=== PATIENT | female | born 1965 | race Caucasian/White ===

== ENCOUNTER 2019-10-12 10:29 | Inpatient (IN) ==
--- NOTE | 2019-09-30 18:42 | ANES ---
Anesthesia Pre Procedure Eval HOME MEDICATIONS ibuprofen 200 mg tablet 600 mg PO Q8H PRN tab 08/12/18 [Last Taken Unknown] zolpidem 5 mg tablet 5 mg PO HS #30 tab 09/01/19 [Last Taken Unknown] ranitidine HCl 150 mg capsule 150 mg PO DAILY 09/24/19 [Last Taken Unknown] FLUoxetine HCL [Prozac] 40 mg PO DAILY 09/30/19 [Last Taken Unknown] Simvastatin 10 mg PO DAILY 09/30/19 [Last Taken Unknown] Allergies/Adverse Reactions: Allergies Allergy/AdvReac Type Severity Reaction Status Date / Time Sulfa (Sulfonamide Allergy Mild red eyes Verified 09/30/19 13:41 Antibiotics) - Planned Procedure Planned Procedure: L Arthroplasty Total Knee Medication List Reviewed:: Yes Allergies Verified: Yes Medical History (Last Reviewed 09/30/19 @ 18:41 by Walter Camarillo CRNA) Arthritis Onset Date: Unknown Hyperlipidemia Onset Date: Unknown Knee pain, bilateral Onset Date: Unknown Headache Onset Date: 11/2015 Pharyngitis, acute Onset Date: 02/2013 Surgical History (Last Reviewed 09/30/19 @ 18:41 by Walter Camarillo CRNA) H/O dilation and curettage Onset Date: Unknown History of tonsillectomy Onset Date: Unknown Family History (Last Reviewed 09/30/19 @ 18:41 by Walter Camarillo CRNA) Father CHF (congestive heart failure) Hypertension Mother Dementia - Family Anesthesia History Family History:: no untoward family reactions to anesthesia, no familial bleeding tendencies, no family history of clotting disorders, no family history of premature - Airway/Neck/Teeth Within Normal Limits:: Yes Teeth Condition: intact Mallampatti Score: 2 Thyromental (T-M) distance: > 6 cm Mandibulo Hyoid distance: > 3 cm - Respiratory Smoking Status: Never smoker Discussed smoking cessation including day of surgery: No Sleep Apnea currently treated: No Sleep Apnea by current assessment: No - Cardiovascular Tolerate Activity: Fair Heart Sounds: S1 & S2, Regular - Anesthesia Assessment and Plan ASA Class: PS, II Anesthesia Type Plan: Block - Left ultrasound guided adductor canal nerve block for postop analgesia, Spinal
[~2019-10-12 10:29] MED LIST: MORPHINE SULFATE 15 MG TABLET.SA PO PRN; ROPIVACAINE HCL/PF 100 MG, EPINEPHrine 0.2 MG, KETOROLAC TROMETHAMINE 30 MG in NORMAL S... IJ PRN; TRANEXAMIC ACID 1,000 MG in NORMAL SALINE 100 ML IV PRN; VANCOMYCIN HCL 1 GM in DEXTROSE 5 % IN WATER 250 ML IV PRN; ceFAZolin SODIUM 1 GM VIAL IV PRN
[2019-10-12] MEDS ORDERED: BUPIVACAINE HCL 50 ML VIAL IJ ONE (11:04)
[2019-10-12] MEDS ORDERED: LIDOCAINE HCL 20 ML VIAL ONE (11:04)
[2019-10-12] MEDS ORDERED: PROPOFOL VIAL IV ONE (11:05)
[2019-10-12] MEDS ORDERED: ONDANSETRON HCL/PF 2 MG/ML VIAL ONE (11:05)
[2019-10-12] MEDS ORDERED: fentaNYL CITRATE/PF 50 MCG/ML AMPUL ONE (11:05)
[2019-10-12] MEDS ORDERED: ceFAZolin SODIUM 1 GM VIAL ONE (11:20)
[2019-10-12] MEDS: RINGER'S SOLUTION,LACTATED 1,000 ML IV PRN ×3 (11:39→14:37)
[2019-10-12] MEDS ORDERED: MAG HYDROX/ALUMINUM HYD/SIMETH 30 ML UDC PO PRN (14:07)
[2019-10-12] MEDS ORDERED: MAGNESIUM HYDROXIDE 30 ML UDC PO PRN (14:07)
[2019-10-12] MEDS ORDERED: ZOLPIDEM TARTRATE 5 MG TABLET PO PRN (14:07)
[2019-10-12] MEDS ORDERED: diphenhydrAMINE HCL 50 MG/ML VIAL IV PRN (14:07)
--- NOTE | 2019-10-12 14:12 | OR ---
Operative Report - Dictated Report Narrative: Date: 10/12/2019 Preoperative diagnosis: Left knee degenerative joint disease. Postoperative diagnosis: Left knee degenerative joint disease. Procedure: Left total knee arthroplasty. Surgeon: Mikey Simeon M.D. Medical Record Librarian: Gianfranco Andres PA-C (provided and essential set of skilled, educated hands that assisted with transfer, positioning, prepping, draping, manipulation, retraction, placement of jigs, injection, insertion of implants, irrigation, closure wounds, and dressings all of which could not be performed by the available surgical crew) Anesthesia: Spinal with regional block and local periarticular joint injection. Complications: None Specimens: Bone. Estimated blood loss: Minimal. Tourniquet time: 105 Minutes at 300 millimeters of mercury. Retained implants: Depuy Attune size 7 left lugged cemented posterior stabilized femoral component. Size 6 fixed-bearing cemented tibial platform. 7 by 7 millimeter posterior stabilized cross-linked tibial insert. 38 millimeter medialized patella button. Indications: Mrs. Brooks is a 53-year-old female who had long-standing bilateral knee pain. She is here today for left. This patient was followed in my clinic for period of time with significant complaints of left knee pain consistent with arthritic changes. She had failed conservative measures including, but not limited to, activity modification, passage of time, medications, and other conservative measures. Patient wished to proceed with surgical treatment. The risks, benefits, and alternatives were discussed in clinic. The risks of , blood clots, bleeding, infection, nerve/tendon blood vessel/ injury, malposition of components, intraoperative fracture, postoperative limited range of motion, persistent pain, failure of components, and need for additional procedures. Patient wished to proceed consent was obtained after answering all questions. Procedure: After marking the correct extremity on the floor, the patient was taken to the operating room. A timeout was performed. IV antibiotics consisting of Ancef and vancomycin secondary to MRSA positive screening were administered prior to the procedure. A regional followed by spinal anesthetic was induced by anesthesia, per my request, on the operative table with all bony prominences well-padded. Davey catheter was placed, and a bump was placed under the operative side buttock. SCDs and KIMBERLI hose were utilized on the nonoperative leg. A well-padded tourniquet was applied to the operative thigh. The operative leg was then pre-scrubbed with alcohol, prepped, and draped in a standard sterile fashion. After exsanguinating the extremity with an Esmarch bandage, the tourniquet was inflated. After marking out the anterior knee for standard incision centered over the patella, the skin was incised and dissected down to the joint retinaculum. The joint retinaculum was marked out as well as the horizontal axis of the patella, and a standard medial parapatellar arthrotomy was then made. The most proximal aspect of the quadriceps tendon and the patella tendon insertion were protected from release. A partial synovectomy was performed as well as a resection of the infrapatellar fat pad. The distal femoral fat pad proximal to the trochlea was also resected using cautery. The soft tissues were elevated off the medial aspect of the proximal tibia using a Cotton elevator ensuring that we did not transect the medial collateral ligament. Upon initial evaluation range of motion was approximately 0 degrees to 130 degrees of flexion. There were signs of advanced arthrosis in the patellofemoral joint the greatest but also present in the medial and lateral joint spaces. There were large marginal osteophytes which were removed with a rongeur. The knee was hyperflexed and the patella was tucked laterally. Protecting the surrounding soft tissues with Homans, an entry drill was placed down the femoral canal using Whitesides line for guidance into the entry point. The intramedullary femoral alignment kiki was utilized in order to cut the distal femur in 5 degrees of valgus resecting 10 millimeters of bone. Next the distal femur was sized to a size 7. A posterior referencing guide was utilized to place the distal femoral cutting block in 3 degrees of external rotation. This was pinned into place. The rotation was confirmed both visually and based on anatomic landmarks. The 4 in 1 cutting jig of the appropriate size was utilized in order to make all bony cuts. The angle wing was used to ensure no notching. Retractors were utilized in order to protect surrounding soft tissues. This cut did not result in any excessive notching. We then cut the box centered over the distal femur. This allowed for resection of the anterior and posterior cruciate ligaments. I then turned my attention to the preparation of the tibia. Using an extra medullary tibial alignment kiki, 4 millimeters of bone was resected off the medial articular surface. This was made perpendicular to the mechanical axis of the joint with the alignment kiki centered over the ankle mortise. The alignment kiki was checked and was noted to be parallel to the mechanical axis, centered over the medial one third of the tibial tubercle, paralleling the anterior surface of the tibia. We then turned our attention to the remaining meniscus and soft tissues. These were removed while protecting the surrounding ligaments and soft tissues. The marginal osteophytes off the anterior, posterior, medial, lateral aspects of the femur and tibia were removed. The tibia was sized out to a size 6. Next the tibia was drilled and punched in an externally rotated position. Next the trial femur and a series of tibial inserts were utilized in order to allow for full extension and maximal flexion. It was found that a 7 millimeter insert gave the best range of motion and stability at multiple flexion points as well as at full extension there was less than 2 mm of gapping both medially and laterally. There is minimal anterior translation with the knee at 90 degrees of flexion and no signs of being able to dislocate the knee. The patella was then prepared. The initial thickness was 21 millimeters. This was reamed down to 11 millimeters parallel to the anterior surface of the patella. It was sized out to a size 38 medialized patella button. This was then drilled and trialed. Without any medial restraint the patella tracked appropriately and did not sublux or dislocate. At this point, it was felt these were the appropriate sized implants, and all trials were removed. The standard periarticular joint injection consisting of ropivacaine, Toradol, and epinephrine were injected into the periarticular joint tissues. The bony surfaces were thoroughly irrigated with a pulsatile-suction saline irrigation device. A bone plug from the prior resected anterior chamfer cut was placed into the drill hole at the distal femur. The bony surfaces were then dried in preparation for placement of the implants. The cement was vacuum mixed per the leather sorter's instructions. The cement was placed on the dry bony surfaces and posterior aspect of the implants. The implants were impacted into place, removing all extruded cement. At this point anesthesia administered tranexamic acid per protocol intravenously. The knee was placed in extension with axial loading with the trial insert while the cement cured. Once the cement cured, all remaining extruded cement was removed. The knee was placed through a range of motion with the trial insert to ensure appropriate range of motion and stability. Final range of motion was approximately 0 to 130 degrees. The knee was again thoroughly irrigated with pulsatile saline lavage. The final polyethylene insert was then impacted into place ensuring no retained soft tissues. The remaining periarticular joint injection was injected. A medium Hemovac drain was placed exiting superior laterally. The knee was then placed over a triangle and the arthrotomy was closed with interrupted #1 Vicryl after thoroughly irrigating the joint. The deep and subcutaneous tissues were closed with interrupted 0 and 3-0 Vicryl respectively. Skin was closed with a running subcutaneous 3-0 Monocryl and Prineo Dermabond dressing. 4 x 4's, Sof-Rol, and a full leg Tej wrap were applied. All sponge, needle, blade, and instrument counts were correct prior to closing the wounds. Postoperative condition: The patient was awoken and transferred to the postanesthesia care unit in stable condition. Plan is to be admitted to the inpatient medical/surgical floor postoperatively for 24 hours of IV antibiotics, physical therapy, occupational therapy, and medical comanagement. Patient will be weightbearing as tolerated with range of motion as tolerated. DVT prophylaxis will be with SCDs, KIMBERLI hose, and pharmacological anticoagulation. Anticipated hospital stay is approximately 1-3 days.
--- NOTE | 2019-10-12 14:29 | ANES ---
Post Anesthesia Discharge - Transfer of Care Transfer of Care handoff given to nurse: Yes - Discharge from PACU Discharge from PACU when meets criteria: Yes - Discharge to ASU Discharge to ASU-no complications/pt stable: Yes
--- NOTE | 2019-10-12 14:30 | ANES ---
Anesthesia Procedure Note Procedure Note: ANESTHESIA PROCEDURE NOTE Date of Procedure: 10/12/2019. Time of procedure: 1150. Performed by: Walter Camarillo CRNA Heel Gouger: None. Preprocedure diagnosis: Left knee degenerative joint disease. Post procedure diagnosis: Same. Procedure: Left ultrasound guided adductor canal block for postoperative analgesia. Indications: The patient is a 53-year-old female, requesting left ultrasound- guided abductor canal block for postoperative analgesia related to left total knee arthroplasty. Findings: See below. Details of the procedure: The tissue over the intended target site was cleansed with ChloraPrepand draped in a sterile fashion. 2 ml Lidocaine 1 % was infiltrated to the skin and subcutaneous tissue at the intended target site. Under sterile technique and ultrasound guidance a 20-gauge block needle was inserted through the left sartorius muscle to the saphenous nerve just anterior and medial to the superficial femoral artery and vein. 15 mL's of 0.5% bupivacaine was injected after negative aspiration for blood. Needle tip and spread of local anesthetic surrounding the saphenous nerve was observed throughout the injection with real time ultrasound visualization. The needle was then removed intact. No complications were noted. The images were retained in the Hospital medical database. EBL: Minimal. Fluids: N/A. Specimen: N/A. Post procedure condition: The patient tolerated the procedure well. No complications were noted. Thank you for this consultation. Walter Camarillo CRNA
[2019-10-12] MEDS: KETOROLAC TROMETHAMINE 15 MG/ML VIAL IV SCH ×2 (15:06→20:06)
[2019-10-12] MEDS: oxyCODONE HCL/ACETAMINOPHEN 1 TAB TABLET PO PRN ×2 (15:07→20:05)
[2019-10-12] MEDS: MORPHINE SULFATE 2 MG/ML DISP.SYRIN IV PRN ×3 (15:22→17:27)
[2019-10-12] MEDS: ONDANSETRON HCL/PF 2 MG/ML VIAL IV PRN (15:23)
--- NOTE | 2019-10-12 16:25 | ANES ---
Post Anesthesia Assessment - Vital Signs Vitals: Last Vital Signs Temp 36.8 C 10/12/19 14:25 Pulse 66 10/12/19 15:53 Resp 14 10/12/19 14:45 BP 109/72 10/12/19 15:53 Pulse Ox 100 10/12/19 15:53 Airway Patency: Normal - Mental Status Level Of Consciousness: Awake - Pain Level Pain Score: 0 - N/V Assessment Nausea/Vomiting Presence: None Dehydration:: No
[2019-10-12] MEDS ORDERED: FLUoxetine HCL 20 MG CAPSULE ONE ×2 (17:24→17:25)
[2019-10-12] MEDS ORDERED: FAMOTIDINE 20 MG TABLET ONE (17:24)
[2019-10-12] MEDS: FAMOTIDINE 20 MG TABLET PO SCH (17:27)
[2019-10-12] MEDS: FLUoxetine HCL 20 MG CAPSULE PO SCH (17:27)
[2019-10-12] MEDS: SENNOSIDES/DOCUSATE SODIUM 1 TAB TABLET PO SCH (21:28)
[2019-10-12] MEDS: SIMVASTATIN 10 MG TABLET PO SCH (21:28)
[2019-10-12] MEDS: MORPHINE SULFATE 15 MG TABLET.SA PO SCH (21:28)
[2019-10-13] MEDS ORDERED: VANCOMYCIN HCL 1 GM in DEXTROSE 5 % IN WATER 250 ML IV SCH ×2 (00:07)
[2019-10-13] MEDS: ZOLPIDEM TARTRATE 5 MG TABLET PO SCH ×2 (01:31→20:32)
[2019-10-13] MEDS: oxyCODONE HCL/ACETAMINOPHEN 1 TAB TABLET PO PRN ×2 (02:46→07:45)
[2019-10-13] MEDS: KETOROLAC TROMETHAMINE 15 MG/ML VIAL IV SCH ×4 (02:47→20:32)
[2019-10-13] MEDS: ONDANSETRON HCL/PF 2 MG/ML VIAL IV PRN ×2 (04:41→09:08)
[2019-10-13 06:22] LABS: Hematocrit 32.8 % (37.0-47.0); Hemoglobin 10.9 gm/dL (12.5-16.0); Mean Cell Volume 95.6 fl (78-100); Mean Corpuscular Hemoglobin 31.8 pg (27-31); Mean Corpuscular Hgb Conc 33.2 g/dl (32-36); Mean Platelet Volume 9.3 fl (8-12.5); Platelet Count 221 K/mm3 (150-450); Red Blood Count 3.43 M/mm3 (4.2-5.4); Red Cell Distribution Width 13.1 % (11.5-14.0); White Blood Count 6.4 K/mm3 (4.0-10.5)
[2019-10-13 06:29] LABS: Anion Gap 8.6 mmol/L (6.8-13.8); BUN/Creatinine Ratio 12.7 (9.0-21.6); Calcium * 7.5 mg/dL (7.9-10.9); Estimated Creat Clear 93.9; Potassium 3.6 mmol/L (3.4-4.6)
--- NOTE | 2019-10-13 08:14 | PN ---
Subjective - Date and Time Seen Date: 10/13/19 Time: 08:09 Subjective Narrative: Patient's main complaint this morning is nausea. She states that she was doing well until taking Percocet the night. She states that the nausea started when she got up to move around. She did not take the Percocet with food in the night and thinks this may have contributed to her issue. She reports a moderate amount of discomfort at this time. She does feel the pain medicine is helping. She reports no lightheadedness or shortness of breath. Objective Objective Narrative: Bandages clean dry intact left lower extremity. Patient is able to plantarflex and dorsiflex the left ankle. Calf supple. Sensation intact to touch. - Vitals Vitals: Last Vital Signs Temp 36.8 C 10/12/19 14:25 Pulse 68 10/13/19 04:53 Resp 14 10/13/19 02:53 BP 96/52 10/13/19 04:53 Pulse Ox 91 L 10/13/19 02:53 - Abnormal Lab Findings Abnormal Lab Findings: Abnormal Lab Results 10/13/19 10/13/19 Range/Units 06:11 06:11 RBC 3.43 L (4.2-5.4) M/mm3 Hgb 10.9 L (12.5-16.0) gm/dL Hct 32.8 L (37.0-47.0) % MCH 31.8 H (27-31) pg Random Glucose 119 H (70-110) mg/dL Calcium 7.5 L (7.9-10.9) mg/dL Cauti Physician Documentation - Urinary Catheter Management Urethral (Davey) Date of Insertion: 10/12/19 Time of Insertion: 12: Date of Removal: 10/13/19 Time of Removal: 01:02 Assessment/Plan - Problems/Diagnosis (1) Status post total left knee replacement Problem: Acute Narrative: Pain control. PT. Anticoagulation. At this point time she is having some nausea related to her pain medicine with taking on an empty stomach. She would like to continue with the current pain regimen and see how she does with taking it with food. If she still feels that the Percocet is stimulating nausea we can switch to morphine IR. She did just get a dose of Zofran in the night and is due for another one here in the next hour. She is scheduled to have her right knee replaced tomorrow we will make her n.p.o. at midnight and antibiotics for tomorrow surgery scheduled. (2) Acute blood loss anemia Problem: Acute Narrative: Patient's hemoglobin is 10.9 down from 13.4 g. She is asymptomatic regarding this will continue to observe.
[2019-10-13] MEDS: MORPHINE SULFATE 15 MG TABLET.SA PO SCH ×2 (09:05→20:32)
[2019-10-13] MEDS: FAMOTIDINE 20 MG TABLET PO SCH (09:06)
[2019-10-13] MEDS: FLUoxetine HCL 20 MG CAPSULE PO SCH (09:06)
[2019-10-13] MEDS: ENOXAPARIN SODIUM 40 MG/0.4 ML SYRG SC SCH (12:12)
[2019-10-13] MEDS: MORPHINE SULFATE 2 MG/ML DISP.SYRIN IV PRN (12:25)
[2019-10-13] MEDS ORDERED: MORPHINE SULFATE 10 MG/0.5 ML SYRINGE PO PRN (12:39)
[2019-10-13] MEDS ORDERED: PROMETHAZINE HCL 25 MG TABLET PO PRN (12:40)
[2019-10-13] MEDS ORDERED: PROCHLORPERAZINE EDISYLATE 5 MG/ML VIAL IV PRN (13:01)
[2019-10-13] MEDS: SCOPOLAMINE HYDROBROMIDE 1.5 MG PATC TD SCH (15:01)
[2019-10-13] MEDS: SIMVASTATIN 10 MG TABLET PO SCH (20:31)
[2019-10-13] MEDS: SENNOSIDES/DOCUSATE SODIUM 1 TAB TABLET PO SCH (20:31)
[2019-10-14] MEDS: KETOROLAC TROMETHAMINE 15 MG/ML VIAL IV SCH ×5 (01:40→22:37)
[2019-10-14] MEDS ORDERED: ceFAZolin SODIUM 1 GM VIAL IV PRN (06:00)
[2019-10-14] MEDS ORDERED: BUPIVACAINE HCL/EPINEPHRINE 50 ML VIAL IJ ONE (06:30)
[2019-10-14] MEDS ORDERED: MIDAZOLAM HCL/PF 5 MG/ML VIAL ONE (06:31)
[2019-10-14] MEDS ORDERED: PROPOFOL VIAL IV ONE (06:31)
[2019-10-14] MEDS ORDERED: LIDOCAINE HCL 20 ML VIAL ONE (06:32)
[2019-10-14] MEDS ORDERED: BUPIVACAINE HCL/PF 10 ML VIAL ONE (06:35)
[2019-10-14] MEDS ORDERED: VANCOMYCIN HCL 1 GM in DEXTROSE 5 % IN WATER 250 ML IV ONE ×2 (07:00)
[2019-10-14] MEDS ORDERED: EPINEPHrine 1 MG/ML AMPUL ONE (07:00)
--- NOTE | 2019-10-14 07:02 | ANES ---
Anesthesia Pre Procedure Eval Vitals/Labs: Last Vital Signs Temp 37.3 C 10/14/19 06:51 Pulse 61 10/14/19 06:51 Resp 14 10/14/19 06:51 BP 104/54 10/14/19 06:51 Pulse Ox 95 10/14/19 06:51 HOME MEDICATIONS ibuprofen 200 mg tablet 600 mg PO Q8H PRN tab 08/12/18 [Last Taken Unknown] zolpidem 5 mg tablet 5 mg PO HS #30 tab 09/01/19 [Last Taken Unknown] FLUoxetine HCL [Prozac] 40 mg PO DAILY 09/30/19 [Last Taken Unknown] Simvastatin 10 mg PO DAILY 09/30/19 [Last Taken Unknown] Ranitidine HCl [Zantac] 150 mg PO DAILY 10/12/19 [Last Taken Unknown] Allergies/Adverse Reactions: Allergies Allergy/AdvReac Type Severity Reaction Status Date / Time Sulfa (Sulfonamide Allergy Mild red eyes Verified 10/12/19 10:48 Antibiotics) - Planned Procedure Planned Procedure: Bilateral Left then Right Total Knee Arthroplasty Medication List Reviewed:: Yes Allergies Verified: Yes Medical History (Last Reviewed 10/14/19 @ 07:01 by Collin Moise CRNA) Arthritis Onset Date: Unknown Hyperlipidemia Onset Date: Unknown Knee pain, bilateral Onset Date: Unknown Headache Onset Date: 11/2015 Pharyngitis, acute Onset Date: 02/2013 Surgical History (Last Reviewed 10/14/19 @ 07:01 by Collin Moise CRNA) H/O dilation and curettage Onset Date: Unknown History of tonsillectomy Onset Date: Unknown Family History (Last Reviewed 10/14/19 @ 07:01 by Collin Moise CRNA) Father CHF (congestive heart failure) Hypertension Mother Dementia - Family Anesthesia History Family History:: no untoward family reactions to anesthesia - Airway/Neck/Teeth Within Normal Limits:: Yes Teeth Condition: intact Neck Exam: full range of motion Mallampatti Score: 2 Thyromental (T-M) distance: > 6 cm Mandibulo Hyoid distance: > 3 cm - Respiratory Respiratory Physical: lungs clear Smoking Status: Never smoker Sleep Apnea currently treated: No Sleep Apnea by current assessment: No - Cardiovascular Cardiac History: hyperlipidemia Tolerate Activity: Fair Heart Sounds: S1 & S2, Regular - Gastrointestinal NPO since: mn - Anesthesia Assessment and Plan ASA Class: PS, II Anesthesia Type Plan: Spinal - adductor canal block for post op analgesia
[2019-10-14] MEDS ORDERED: RINGER'S SOLUTION,LACTATED 1,000 ML IV ONE (07:29)
[2019-10-14] MEDS: MORPHINE SULFATE 15 MG TABLET.SA PO SCH ×2 (07:49→08:55)
[2019-10-14] MEDS ORDERED: ONDANSETRON HCL/PF 2 MG/ML VIAL ONE (07:57)
[2019-10-14] MEDS ORDERED: ceFAZolin SODIUM/DEXTROSE,ISO 2 GM/50 ML BAG IV ONE (08:06)
[2019-10-14] MEDS ORDERED: DEXTROSE 5%-LACTATED RINGERS 1,000 ML IV PRN (10:13)
[2019-10-14] MEDS ORDERED: MORPHINE SULFATE 10 MG/0.5 ML SYRINGE PO PRN (10:15)
--- NOTE | 2019-10-14 10:18 | OR ---
Operative Report - Dictated Report Narrative: Date: 10/14/2019 Preoperative diagnosis: Right knee degenerative joint disease. Postoperative diagnosis: Right knee degenerative joint disease. Procedure: Right total knee arthroplasty. Surgeon: Mikey Simeon M.D. Vehicle Calibration Engineer: Gianfranco Andres PA-C (provided and essential set of skilled, educated hands that assisted with transfer, positioning, prepping, draping, manipulation, retraction, placement of jigs, injection, insertion of implants, irrigation, closure wounds, and dressings all of which could not be performed by the available surgical crew) Anesthesia: Spinal with regional block and local periarticular joint injection. Complications: None Specimens: Bone. Estimated blood loss: Minimal. Tourniquet time: 105 Minutes at 300 millimeters of mercury. Retained implants: Depuy Attune size 7 right lugged cemented posterior stabilized femoral component. Size 6 fixed-bearing cemented tibial platform. 7 by 6 millimeter posterior stabilized cross-linked tibial insert. 38 millimeter medialized patella button. Indications: Mrs. Brooks is a 53-year-old female who is here today for second of her bilateral total knee arthroplasties today is on the right. This patient was followed in my clinic for period of time with significant complaints of right knee pain consistent with arthritic changes. She had failed conservative measures including, but not limited to, activity modification, passage of time, medications, and other conservative measures. Patient wished to proceed with surgical treatment. The risks, benefits, and alternatives were discussed in clinic. The risks of , blood clots, bleeding, infection, nerve/tendon blood vessel/ injury, malposition of components, intraoperative fracture, postoperative limited range of motion, persistent pain, failure of components, and need for additional procedures. Patient wished to proceed consent was obtained after answering all questions. Procedure: After marking the correct extremity on the floor, the patient was taken to the operating room. A timeout was performed. IV antibiotics cons isting of Ancef and vancomycin secondary to a positive MRSA screening were administered prior to the procedure. A regional followed by spinal anesthetic was induced by anesthesia, per my request, on the operative table with all bony prominences well-padded. Davey catheter was placed, and a bump was placed under the operative side buttock. SCDs and KIMBERLI hose were utilized on the nonoperative leg. A well-padded tourniquet was applied to the operative thigh. The operative leg was then pre-scrubbed with alcohol, prepped, and draped in a standard sterile fashion. After exsanguinating the extremity with an Esmarch bandage, the tourniquet was inflated. After marking out the anterior knee for standard incision centered over the patella, the skin was incised and dissected down to the joint retinaculum. The joint retinaculum was marked out as well as the horizontal axis of the patella, and a standard medial parapatellar arthrotomy was then made. The most proximal aspect of the quadriceps tendon and the patella tendon insertion were protected from release. A partial synovectomy was performed as well as a resection of the infrapatellar fat pad. The distal femoral fat pad proximal to the trochlea was also resected using cautery. The soft tissues were elevated off the medial aspect of the proximal tibia using a Cotton elevator ensuring that we did not transect the medial collateral ligament. Upon initial evaluation range of motion was approximately 0 degrees to 130 degrees of flexion. There were signs of advanced arthrosis in the patellofemoral greater than medial and lateral joint spaces. There were large marginal osteophytes which were removed with a rongeur. The knee was hyperflexed and the patella was tucked laterally. Protecting the surrounding soft tissues with Homans, an entry drill was placed down the femoral canal using Whitesides line for guidance into the entry point. The intramedullary femoral alignment kiki was utilized in order to cut the distal femur in 5 degrees of valgus resecting 10 millimeters of bone. Next the distal femur was sized to a size 7. A posterior referencing guide was utilized to place the distal femoral cutting block in 3 degrees of external rotation. This was pinned into place. The rotation was confirmed both visually and based on anatomic landmarks. The 4 in 1 cutting jig of the appropriate size was utilized in order to make all bony cuts. The angle wing was used to ensure no notching. Retractors were utilized in order to protect surrounding soft tissues. This cut did not result in any excessive notching. We then cut the box centered over the distal femur. This allowed for resection of the anterior and posterior cruciate ligaments. I then turned my attention to the preparation of the tibia. Using an extra medullary tibial alignment kiki, 3 millimeters of bone was resected off the medial articular surface. This was made perpendicular to the mechanical axis of the joint with the alignment kiki centered over the ankle mortise. The alignment kiki was checked and was noted to be parallel to the mechanical axis, centered over the medial one third of the tibial tubercle, paralleling the anterior surface of the tibia. We then turned our attention to the remaining meniscus and soft tissues. These were removed while protecting the surrounding ligaments and soft tissues. The marginal osteophytes off the anterior, posterior, medial, lateral aspects of the femur and tibia were removed. The tibia was sized out to a size 6. Next the tibia was drilled and punched in an externally rotated position. Next the trial femur and a series of tibial inserts were utilized in order to allow for full extension and maximal flexion. It was found that a 6 millimeter insert gave the best range of motion and stability at multiple flexion points as well as at full extension there was less than 2 mm of gapping both medially and laterally. There is minimal anterior translation with the knee at 90 degrees of flexion and no signs of being able to dislocate the knee. The patella was then prepared. The initial thickness was 20 millimeters. This was reamed down to 11 millimeters parallel to the anterior surface of the patella. It was sized out to a size 38 medialized patella button. This was then drilled and trialed. Without any medial restraint the patella tracked appropriately and did not sublux or dislocate. At this point, it was felt these were the appropriate sized implants, and all trials were removed. The standard periarticular joint injection consisting of ropivacaine, Toradol, and epinephrine were injected into the periarticular joint tissues. The bony surfaces were thoroughly irrigated with a pulsatile-suction saline irrigation device. A bone plug from the prior resected anterior chamfer cut was placed into the drill hole at the distal femur. The bony surfaces were then dried in preparation for placement of the implants. The cement was vacuum mixed per the general internal medicine physician's instructions. The cement was placed on the dry bony surfaces and posterior aspect of the implants. The implants were impacted into place, removing all extruded cement. At this point anesthesia administered tranexamic acid per protocol intravenously. The knee was placed in extension with axial loading with the trial insert while the cement cured. Once the cement cured, all remaining extruded cement was removed. The knee was placed through a range of motion with the trial insert to ensure appropriate range of motion and stability. Final range of motion was approximately 0 to 130 degrees. The knee was again thoroughly irrigated with pulsatile saline lavage. The final polyethylene insert was then impacted into place ensuring no retained soft tissues. The remaining periarticular joint injection was injected. A medium Hemovac drain was placed exiting superior laterally. The knee was then placed over a triangle and the arthrotomy was closed with interrupted #1 Vicryl after thoroughly irrigating the joint. The deep and subcutaneous tissues were closed with interrupted 0 and 3-0 Vicryl respectively. Skin was closed with a running subcutaneous 3-0 Monocryl and Prineo Dermabond dressing. 4 x 4's, Sof-Rol, and a full leg Tej wrap were applied. All sponge, needle, blade, and instrument counts were correct prior to closing the wounds. Postoperative condition: The patient was awoken and transferred to the postanesthesia care unit in stable condition. Plan is to be admitted to the inpatient medical/surgical floor postoperatively for 24 hours of IV antibiotics, physical therapy, occupational therapy, and medical comanagement. Patient will be weightbearing as tolerated with range of motion as tolerated. DVT prophylaxis will be with SCDs, KIMBERLI hose, and pharmacological anticoagulation. Anticipated hospital stay is approximately 1-3 days.
[2019-10-14] MEDS: FAMOTIDINE 20 MG TABLET PO SCH (11:18)
[2019-10-14] MEDS: FLUoxetine HCL 20 MG CAPSULE PO SCH ×2 (11:29→20:59)
--- NOTE | 2019-10-14 12:07 | ANES ---
Post Anesthesia Discharge - Transfer of Care Transfer of Care handoff given to nurse: Yes - Discharge from PACU Discharge from PACU when meets criteria: Yes
--- NOTE | 2019-10-14 12:08 | ANES ---
Post Anesthesia Assessment - Vital Signs Vitals: Last Vital Signs Temp 36.5 C 10/14/19 11:12 Pulse 54 L 10/14/19 11:12 Resp 16 10/14/19 11:12 BP 97/55 10/14/19 11:12 Pulse Ox 94 10/14/19 11:12 Airway Patency: Normal - Mental Status Level Of Consciousness: Awake - Pain Level Pain Score: 0 - N/V Assessment Nausea/Vomiting Presence: None Dehydration:: No
--- NOTE | 2019-10-14 12:31 | ANES ---
Anesthesia Procedure Note Procedure Note: ANESTHESIA PROCEDURE NOTE Date of procedure: 10/14/2019. Time of procedure: 08. Performed by: Rocky Moise CRNA Template Reproduction Technician: Amara Garvey RN . Preprocedure diagnosis: Right knee DJD. Post procedure diagnosis: Same. Procedure: Ultrasound-guided right adductor canal block. Indications: Postoperative analgesia. Findings: Patient brought to operating room #4 and given a spinal anesthetic. The patient's right inner thigh was prepped with ChloraPrep. 20-gauge 4 inch regional block needle was advanced under ultrasound guidance until tip of needle was positioned just lateral to saphenous nerve in the right adductor canal. 30 mL of 0.25% Marcaine with epinephrine 1-200,000 was injected with adequate spread of local anesthesia noted around the nerve. Regional block needle was removed intact. EBL: Minimal. Fluids: N/A. Specimen: N/A. Post procedure condition: The patient tolerated the procedure well. No complications were noted. Thank you for this consultation Rocky Moise CRNA
[2019-10-14] MEDS: ENOXAPARIN SODIUM 40 MG/0.4 ML SYRG SC SCH (12:51)
[2019-10-14] MEDS: MORPHINE SULFATE 2 MG/ML DISP.SYRIN IV PRN ×2 (15:28→22:49)
[2019-10-14] MEDS ORDERED: MORPHINE SULFATE 15 MG TABLET.SA PO ONE (16:31)
[2019-10-14] MEDS: ACETAMINOPHEN 500 MG TABLET PO PRN (16:51)
[2019-10-14] MEDS: DEXTROSE 5%-LACTATED RINGERS 1,000 ML IV PRN (19:00)
[2019-10-14] MEDS ORDERED: VANCOMYCIN HCL 1 GM in DEXTROSE 5 % IN WATER 250 ML IV SCH ×2 (20:13)
[2019-10-14] MEDS: MORPHINE SULFATE 30 MG TABLET.SA PO SCH (20:16)
[2019-10-14] MEDS: ZOLPIDEM TARTRATE 5 MG TABLET PO SCH (20:59)
[2019-10-14] MEDS: SENNOSIDES/DOCUSATE SODIUM 1 TAB TABLET PO SCH (21:00)
[2019-10-14] MEDS: SIMVASTATIN 10 MG TABLET PO SCH (21:00)
[2019-10-15] MEDS: MORPHINE SULFATE 2 MG/ML DISP.SYRIN IV PRN ×4 (01:54→10:55)
[2019-10-15] MEDS: ACETAMINOPHEN 500 MG TABLET PO PRN ×3 (02:45→20:52)
[2019-10-15] MEDS: KETOROLAC TROMETHAMINE 15 MG/ML VIAL IV SCH ×4 (03:55→22:02)
[2019-10-15] MEDS: DEXTROSE 5%-LACTATED RINGERS 1,000 ML IV PRN (04:29)
[2019-10-15] MEDS ORDERED: TRANEXAMIC ACID 1,000 MG in NORMAL SALINE 100 ML IV PRN (06:00)
[2019-10-15] MEDS ORDERED: RINGER'S SOLUTION,LACTATED 1,000 ML IV PRN (06:00)
[2019-10-15] MEDS ORDERED: ROPIVACAINE HCL/PF 100 MG, EPINEPHrine 0.2 MG, KETOROLAC TROMETHAMINE 15 MG in NORMAL S... IJ PRN (06:00)
[2019-10-15 06:55] LABS: Hematocrit 28.4 % (37.0-47.0); Hemoglobin 9.4 gm/dL (12.5-16.0); Mean Cell Volume 95.3 fl (78-100); Mean Corpuscular Hemoglobin 31.5 pg (27-31); Mean Corpuscular Hgb Conc 33.1 g/dl (32-36); Mean Platelet Volume 9.7 fl (8-12.5); Platelet Count 172 K/mm3 (150-450); Red Blood Count 2.98 M/mm3 (4.2-5.4); White Blood Count 8.3 K/mm3 (4.0-10.5)
[2019-10-15 07:06] LABS: Anion Gap 10.3 mmol/L (6.8-13.8); BUN/Creatinine Ratio 5.2 (9.0-21.6); Calcium * 7.6 mg/dL (7.9-10.9); Estimated Creat Clear 86.6; Potassium 3.3 mmol/L (3.4-4.6)
[2019-10-15] MEDS: MORPHINE SULFATE 30 MG TABLET.SA PO SCH ×2 (08:37→20:46)
[2019-10-15] MEDS: FAMOTIDINE 20 MG TABLET PO SCH (08:38)
[2019-10-15] MEDS: MORPHINE SULFATE 10 MG/0.5 ML SYRINGE PO PRN ×5 (08:38→23:36)
[2019-10-15] MEDS: ENOXAPARIN SODIUM 40 MG/0.4 ML SYRG SC SCH (13:29)
--- NOTE | 2019-10-15 16:59 | PN ---
Subjective - Date and Time Seen Date: 10/15/19 Time: 07:45 Subjective Narrative: Subjective: Reports increased pain yesterday afternoon but it is improved this morning. Was able to get to the bathroom with therapy. Pain is well- controlled. Voiding without any complications. Tolerating by mouth intake. Denies any nausea or vomiting after adding additional nausea medicines. Denies calf pain. Physical exam: Alert and oriented to person, place and time Bilateral lower extremity: Palpable dorsalis pedis pulse. Sensation grossly intact to light touch. Dressings clean and dry in the right. Able to flex and extend ankle and toes. No excessive drainage. Calf and thigh are soft and nontender. Assessment: Postop day 1 status post right total knee arthroplasty postop day 3 status post left knee arthroplasty. Plan: Due to the need for pain control, post-operative limited mobility, protection of the surgical site and joint, monitoring of the wound, and the management of chronic medical conditions, she requires continued inpatient care. Continue with physical and occupational therapy weightbearing as tolerated. Continue with anticoagulation. 24 hours postoperative prophylactic antibiotics. Pain control with goal to rely on oral medications. Continue bowel regimen. Will need 6 weeks with walker or assitive device to protect joint while ambulating during the recovery process. Discharge planning. Discontinue drain and Davey catheter. Objective - Vitals Vitals: Last Vital Signs Temp 37.3 C 10/15/19 16:05 Pulse 75 10/15/19 16:05 Resp 16 10/15/19 16:05 BP 111/63 10/15/19 16:05 Pulse Ox 95 10/15/19 16:05 - Abnormal Lab Findings Abnormal Lab Findings: Abnormal Lab Results 10/15/19 10/15/19 Range/Units 06:43 06:43 RBC 2.98 L (4.2-5.4) M/mm3 Hgb 9.4 L (12.5-16.0) gm/dL Hct 28.4 L (37.0-47.0) % MCH 31.5 H (27-31) pg Potassium 3.3 L (3.4-4.6) mmol/L BUN/Creatinine Ratio 5.2 L (9.0-21.6) Random Glucose 135 H (70-110) mg/dL Calcium 7.6 L (7.9-10.9) mg/dL Cauti Physician Documentation - Urinary Catheter Management Urethral (Davey) Date of Insertion: 10/14/19 Time of Insertion: 08:00 Date of Removal: 10/15/19 Time of Removal: 07:46 Assessment/Plan - Problems/Diagnosis (1) Status post total right knee replacement Problem: Acute (2) Acute blood loss anemia Problem: Acute (3) Status post total left knee replacement Problem: Acute (4) Depression Problem: Chronic (5) Nausea Problem: Acute (6) Hyperlipidemia Problem: Chronic
[2019-10-15] MEDS: FLUoxetine HCL 20 MG CAPSULE PO SCH (20:46)
[2019-10-15] MEDS: SIMVASTATIN 10 MG TABLET PO SCH (20:46)
[2019-10-15] MEDS: ZOLPIDEM TARTRATE 5 MG TABLET PO SCH (20:46)
[2019-10-15] MEDS: SENNOSIDES/DOCUSATE SODIUM 1 TAB TABLET PO SCH (20:46)
[2019-10-16] MEDS: KETOROLAC TROMETHAMINE 15 MG/ML VIAL IV SCH (03:57)
[2019-10-16] MEDS: ACETAMINOPHEN 500 MG TABLET PO PRN ×2 (06:50→13:01)
[2019-10-16] MEDS: MORPHINE SULFATE 10 MG/0.5 ML SYRINGE PO PRN ×2 (06:59→10:53)
[2019-10-16] MEDS: FAMOTIDINE 20 MG TABLET PO SCH (09:04)
[2019-10-16] MEDS: MORPHINE SULFATE 30 MG TABLET.SA PO SCH (09:04)
--- NOTE | 2019-10-16 13:08 | DS ---
(1) Status post total left knee replacement Problem: Acute (2) Acute blood loss anemia Problem: Acute Date of Discharge:: 10/16/19 Description of Stay: Mrs. Brooks was admitted to the floor after undergoing left total knee arthroplasty on October 12 and right total knee arthroplasty on October 14. Tolerated this well. Was admitted to the floor postoperatively for 24 hours of IV antibiotics, pain control, medical comanagement, and occupational and physical therapy. OT and PT were consulted to assist with activities of daily living and ambulation. Was made weightbearing as tolerated with range of motion as tolerated. Pain was initially controlled with IV regimen. She did have issues with postoperative nausea on postoperative day 1. Pain medications were modified as well as antinausea medications instituted. This did improve by postoperative day 2. This was transitioned to oral once tolerating a by mouth intake. Was resumed on home diet and medications. Had a Davey catheter inserted and the operating room which was discontinued on postoperative day 1 for respective knees. A drain was placed intraoperatively into the knee which was discontinued on postoperative day 1 for respective knees. Lovenox SCD and KIMBERLI hose were utilized for DVT prophylaxis. Lovenox was held on postop day 3 which would have been the day of surgery for her right total knee. It was a reinstituted on postop day 1 from her right total knee. Vital signs remained stable to the hospital course. Serial labs were obtained which showed a final hemoglobin of 9.4 grams down from 13.4 g preoperatively. BMP was reviewed and was stable. Physical examination throughout the hospital course showed an extremity that had sensation that was intact to light touch, palpable pulses, a benign wound, motor intact to the toes, ankle, and knee. Knee range of motion was approximately 0 degrees to 70 degrees bilaterally. Once an oral pain regimen was tolerated and physical therapy goals were met, it was felt that they were stable for discharge to home. Instructions: Continue with weightbearing as tolerated and range of motion as tolerated. It is OK to shower on the wound if it is not draining. If you note any drainage or for comfort you can cover with dry gauze and tape. Change every 2-3 days as needed. Continue with physical therapy. Resume home diet. Report any fever over 101.5 Fahrenheit, uncontrolled pain, increased drainage, foul odor of drainage, new or increased calf pain or shortness of breath, or any other significant complaints. A 325mg dialy aspirin will be started after finishing anticoagulation if not allergic. Continue with KIMBERLI hose on the operative extremity until instructed otherwise. No driving until instructed otherwise. Follow up in approximately 10-14 days. Procedures Performed: see notes below List Procedures: Left total knee arthroplasty October 12, right total knee arthroplasty October 14 Results and Findings: Lab Pending Results 10/13/19 06:11: WBC 6.4, RBC 3.43 L, Hgb 10.9 L, Hct 32.8 L, MCV 95.6, MCH 31.8 H, MCHC 33.2, RDW 13.1, Plt Count 221, MPV 9.3 10/13/19 06:11: Sodium 135, Plasma Sodium 135, Potassium 3.6, Chloride 101, Carbon Dioxide 29.0, Anion Gap 8.6, BUN 9, Creatinine 0.71, Est GFR (Non-Af Amer) 92, BUN/Creatinine Ratio 12.7, Random Glucose 119 H, Calcium 7.5 L 10/15/19 06:43: WBC 8.3 D, RBC 2.98 L, Hgb 9.4 L, Hct 28.4 L, MCV 95.3, MCH 31.5 H, MCHC 33.1, RDW 13.0, Plt Count 172, MPV 9.7 10/15/19 06:43: Sodium 139, Plasma Sodium 140, Potassium 3.3 L, Chloride 103, Carbon Dioxide 29.0, Anion Gap 10.3, BUN 4 D, Creatinine 0.77, Est GFR (Non-Af Amer) 84, BUN/Creatinine Ratio 5.2 L, Random Glucose 135 H, Calcium 7.6 L Discharge Location: Home Disposition: Home self-care Condition: Good Discharge Activity: Activity as tolerated, Weight bearing, Other - With wheeled walker Discharge Diet: General/regular food Referrals: Mikey Simeon MD [Staff Physician] - 10/29/19 9:30 am Problem Oriented Discharge Instructions to Patient/Family: Total Knee Replacement, Care After, [id number] Additional Patient Instructions (free text): Outpatient Physical Therapy scheduled at [facility] on Saturday10-19-19 at 10:00am. Follow-up with Dr. Simeon in the office on 10-29-19 at 9:30am. Prescriptions (Any new or edited meds): Enoxaparin Sodium [Lovenox] 40 mg SC Q24H #7 disp.syrin Transmission Status: Received by [facility] Morphine Sulfate 1 - 2 tab PO Q4H PRN #60 tab PRN Reason: Pain Transmission Status: Received by [facility] Morphine Sulfate [Ms Contin] 15 - 30 mg PO Q12H #20 tab Transmission Status: Received by [facility] Promethazine HCl [Phenergan (Promethazine)] 25 mg PO Q4H PRN #30 tab PRN Reason: Nausea Transmission Status: Received by [facility] Sennosides/Docusate Sodium [Senokot-S] 2 tab PO HS #60 tab Transmission Status: Received by [facility] Scopolamine [Transderm-Scop] 1.5 mg TD Q3D #7 patch.td72 Transmission Status: Received by [facility] Complete Home Medications List: Complete Home Medication List: zolpidem 5 mg tablet 5 mg PO HS #30 tab 09/01/19 FLUoxetine HCL [Prozac] 40 mg PO DAILY 09/30/19 Simvastatin 10 mg PO DAILY 09/30/19 Ranitidine HCl [Zantac] 150 mg PO DAILY 10/12/19 Enoxaparin Sodium [Lovenox] 40 mg SC Q24H #7 disp.syrin 10/15/19 Morphine Sulfate 1 - 2 tab PO Q4H PRN #60 tab 10/15/19 Morphine Sulfate [Ms Contin] 15 - 30 mg PO Q12H #20 tab 10/15/19 Promethazine HCl [Phenergan (Promethazine)] 25 mg PO Q4H PRN #30 tab 10/15/19 Scopolamine [Transderm-Scop] 1.5 mg TD Q3D #7 patch.td72 10/15/19 Sennosides/Docusate Sodium [Senokot-S] 2 tab PO HS #60 tab 10/15/19
[2019-10-16] MEDS: ENOXAPARIN SODIUM 40 MG/0.4 ML SYRG SC SCH (13:46)
[2019-10-16] MEDS: SCOPOLAMINE HYDROBROMIDE 1.5 MG PATC TD SCH (13:47)
[2019-10-16 17:08] VITALS: BP 100/54
== END 2019-10-16 16:10 | disposition home or self-care (01) | DRG 462 ==
LOC: MS 10:29 → EDSTATUS 11:15
PROVIDERS: ADMIT Orthopaedic Surgery; ATTEND Orthopaedic Surgery
DX: E78.5 Hyperlipidemia, unspecified; D62 Acute posthemorrhagic anemia; R11.0 Nausea; F32.9 Major depressive disorder, single episode, unspecified; M17.0 Bilateral primary osteoarthritis of knee
CPT/HCPCS: 36415; 73560; 80048; 85027; 97110; 97116; 97161; 97165; 97530; 97535; J2405